=== PATIENT | male | born 1980 | race Caucasian/White ===

== ENCOUNTER 2023-12-15 07:00 | Day surgery (SDC) | payer OTHER ==
[2023-12-11 14:02] VITALS: BP 125/75
[~2023-12-15] VITALS: Ht 175.3 cm; Wt 72.7 kg
[~2023-12-15 07:00] MED LIST: CEFAZOLIN SODIUM 2 GM/20 ML SYR IV SCH; IBLOOD GLUCOSE TEST STRIP 1 EA TEST VI PRN; KETOROLAC TROMETHAMINE 30 MG/ML VIAL ONE; LACTATED RINGER'S 1,000 ML IV SCH; LIDOCAINE HCL 1% 5 ML SDV INJ ONE; TRANEXAMIC ACID 2,000 MG in SODIUM CHLORIDE 0.9% 100 ML IV SCH
[2023-12-15 07:17] VITALS: BP 119/78
--- NOTE | 2023-12-15 07:52 | NUR ---
VISITED DURING SPIRITUAL CARE ROUNDS. PT SUPPORTED BY FAMILY MEMBER IN ROOM. NO SIGNS OF ANXIETY, STATED CONFIDENT IN CARE AND PROCEDURE. HOT PACKER PROVIDED SUPPORTIVE PRESENCE, HOSPITALITY, PRAYER. PT AND FAMILY EXPRESSED GRATITUDE.
[2023-12-15] MEDS ORDERED: HYDROCODONE/ACETA 5/325 TAB PO PRN (08:30)
[2023-12-15] MEDS ORDERED: fentaNYL citrate 100 MCG/2 ML VIAL ONE (08:32)
[2023-12-15] MEDS ORDERED: propofoL 200 MG/20 ML VIAL ONE (08:33)
[2023-12-15] MEDS ORDERED: ondansetron HCL 4 MG/2 ML VIAL ONE (08:33)
[2023-12-15] MEDS ORDERED: DEXAMETHASONE SOD PHOS 4 MG/ML VIAL ONE (08:33)
[2023-12-15] MEDS ORDERED: KETOROLAC TROMETHAMINE 30 MG/ML VIAL ONE (08:33)
[2023-12-15] MEDS ORDERED: LIDOCAINE HCL 2% 5 ML SDV ONE (08:33)
[2023-12-15] MEDS ORDERED: ACETAMINOPHEN 1,000 MG/100 ML VIAL ONE (08:33)
[2023-12-15] MEDS ORDERED: fentaNYL citrate 50 MCG/ML SDV IV PRN (09:00)
[2023-12-15] MEDS ORDERED: IBLOOD GLUCOSE TEST STRIP 1 EA TEST VI PRN (09:00)
[2023-12-15] MEDS ORDERED: droPERidol 5 MG/2 ML VIAL IV PRN (09:00)
[2023-12-15] MEDS ORDERED: ondansetron HCL 4 MG/2 ML VIAL IV PRN (09:00)
[2023-12-15] MEDS ORDERED: NALOXONE HCL 0.4 MG SYR IV PRN (09:00)
[2023-12-15] MEDS ORDERED: HYDROCODON-ACE1 EA10 PO (09:11)
[2023-12-15] MEDS ORDERED: DICLOFENAC SODI75 MG PO (09:11)
[2023-12-15 09:41] VITALS: BP 119/61
--- NOTE | 2023-12-15 09:46 | NUR ---
12/15/23 0947 Hanna Warren 0909 PT ARRIVED IN PACU AWAKE WITH NO C/O'S. BREG BRACE ON R KNEE AND LOCKED. 914 CRYO CUFF PLACED TO R KNEE. 919 SITTING UP IN BED SIPPING ON WATER AND TALKING TO STAFF. NO C/O'S. LOOSE BODY IN SPECIMEN JAR GIVEN TO PT FROM SURGERY RN. 0935 DR AT BEDSIDE WRITING PT A RETURN TO WORK SLIP. 0937 TO DS. REPORT GIVEN TO RN. AT BEDSIDE.
--- NOTE | 2023-12-15 09:56 | NUR ---
PATIENT RETURNS TO DAY SURGERY VIA BED. REPORT TAKEN FROM JEANNIE GALICIA FROM PACU. PATIENT ALERT AND OREIENTED UPON ARRIVAL. PATIENT DENIES NAUSEA/VOMITING. PAIN A 1/10 PER PATIENT. VITAL SIGNS OBTAINED AND WDL. WATER REFILLED AND CRACKERS PROVIDED. PATIENT DENIES THE NEED TO VOID AT THIS TIME. BED IS IN LOWEST POSITION AND LOCKED. CALL LIGHT WITHIN REACH. PATIENT DENIES ANY NEEDS AT THIS TIME.
[2023-12-15 10:27] VITALS: BP 123/70
--- NOTE | 2023-12-15 10:30 | NUR ---
AT THIS TIME PATIENT HAS MET ALL MILESTONES. PATIENT HAS DRANK WATER AND ATE CRACKERS WITHOUT NAUSEA/VOMITING. PATIENT HAVE BEEN UP TO VOID. PAIN IS UNDER CONTROL WITH PATIENT REPORTING 1/10 PAIN AND DENIES NEEDING PAIN MEDICATION. DRESSING TO RIGHT KNEE INTACT. SCANT DRAINAGE NOTED TO ABD PAD. DISCHARGE INSTRUCTIONS WERE REVIEWED IN DETAIL AND PATIENT HAS NO QUESTIONS. PATIENT AND UNDERSTAND THAT THEY ARE TO BUY CRUTCHES FOR USE AT HOME DISCHARGE INSTRUCTIONS STATED. PATIENT FEELS READY TO GO HOME. CRYOCUFF WAS SENT HOME WITH PATIENT. IS PATIENT'S RIDE HOME. PATIENT DISCHARGED VIA WHEELCHAIR AND THIS RN SAW PATIENT TO CAR.
--- NOTE | 2023-12-15 10:43 | OR ---
[facility] [address], [place] [address] Signed DATE OF OPERATION: 12/15/2023 SURGEON: Jamal Queen MD PREOPERATIVE DIAGNOSIS: Loose body, right knee. POSTOPERATIVE DIAGNOSES: 1. Loose body, right knee. 2. Osteochondral defect, medial femoral condyle, right knee. PROCEDURES PERFORMED: 1. Right knee arthroscopy with microfracture medial femoral condyle. 2. Removal of loose body. FIRE TENDER: None. ANESTHESIA: General. BLOOD LOSS: Less than 50 mL. BRIEF HISTORY: Umair is a 43-year-old gentleman with pain and locking in his knee and symptoms consistent with a loose body, which was confirmed on his MRI. Risks, benefits, and alternatives of surgery were discussed with him and he elected to proceed. Once consent was obtained, he was taken to the operating room. After adequate anesthesia, he was placed on the operating room table. Left leg was flexed, abducted, and externally rotated on a well-padded leg ovalle. The right leg was placed in a well-padded proximal leg ovalle with no tourniquet. The leg was then prepped and draped in the standard sterile fashion. The portal sites were injected with 0.25% Marcaine with epinephrine and the standard inferolateral and superolateral portals were made and the scope was introduced into the knee. ARTHROSCOPIC FINDINGS: Mild synovitis was noted throughout the knee. The patellofemoral joint was intact and lined up well. Lateral gutter was clear. Medial gutter showed a 1 cm cartilaginous loose body. The medial compartment showed intact cartilage and meniscus with the Electronically Signed By: JAMAL QUEEN MD 12/15/23 1043 PATIENT NAME: UMAIR CONRAD OPERATIVE REPORT DATE OF : 84 REPORT #: [id number] PHYSICIAN: JAMAL QUEEN MD PCP: NO PRIMARY CARE PHYSICIAN REPORT IS CONFIDENTIAL AND NOT TO BE RELEASED WITHOUT AUTHORIZATION [facility] [address], [place] [address] Signed exception of a 1 x 1.7 cm area of OCD. This is in the lateral aspect of the medial femoral condyle. This was at about the 60 degree point. Lateral compartment is intact. ACL and PCL were intact. DESCRIPTION OF OPERATION: Standard inferomedial portal was made using a needle to localize the position. The grasper was then used to remove the cartilaginous loose body with no difficulty. The base of the OCD was then evaluated. There was a large chondral flap that was based medially. This was removed and the base was excoriated using a ring curette. The remaining intact cartilage was then smoothed and a good 90 degree edge was made around the lesion. Then using the four holes were poked in the bottom of it with excellent bleeding. Once this was completed, the debris was evacuated and the scope was removed. The portals were then closed using 3-0 nylon and the knee was dressed with Adaptic, ABD and Daniel wrap. He tolerated the procedure well. All sponge, needle, and instrument counts were correct. Jamal Queen MD BA/MODL /[id number] Copies: ~ Electronically Signed By: JAMAL QUEEN MD 12/15/23 1043 PATIENT NAME: UMAIR CONRAD OPERATIVE REPORT DATE OF : 84 REPORT #: [id number] PHYSICIAN: JAMAL QUEEN MD PCP: NO PRIMARY CARE PHYSICIAN REPORT IS CONFIDENTIAL AND NOT TO BE RELEASED WITHOUT AUTHORIZATION
[2023-12-15] MEDS ORDERED: DICLOFENAC SOD 75 MG TABEC PO SCH (21:00)
== END 2023-12-15 10:40 | disposition home or self-care (01) ==
LOC: DS 07:00 → EDBD 08:15 → DS 08:15
PROVIDERS: ATTEND Specialist
PROC: 0SQC4ZZ Repair Right Knee Joint, Percutaneous Endoscopic Approach (ICD-10-PCS; 2023-12-15)
PROC: 0SCC4ZZ Extirpation of Matter from Right Knee Joint, Percutaneous Endoscopic Approach (ICD-10-PCS; principal; 2023-12-15 09:20)
DX: M21.861 Other specified acquired deformities of right lower leg (principal)
CPT/HCPCS: 01400; J0131; J0690; J1100; J1885; J2001; J2405; J2704; J3010; J7121